=== PATIENT | male | born 2000 | race Caucasian/White ===

== ENCOUNTER 2023-03-29 09:46 | Emergency (ER) | payer OTHER ==
[~2023-03-29] VITALS: Ht 172.7 cm; Wt 90.9 kg
[2023-03-29 09:49] VITALS: BP 141/74; PULSE 66; RESP 18; TEMP 98.6
[2023-03-29] MEDS ORDERED: MECLIZINE HCL 25 MG TABLET PO ONE (10:45)
[2023-03-29] MEDS ORDERED: ACETAMINOPHEN 500 MG TABLET PO ONE (10:45)
[2023-03-29] MEDS ORDERED: ONDANSETRON HCL 4 MG TABLET PO ONE (10:45)
[2023-03-29] MEDS ORDERED: IBUP-1554 PO (12:39)
== END 2023-03-29 13:37 | disposition home or self-care (01) ==
LOC: EMS 09:50
DX: S13.4XXA Sprain of ligaments of cervical spine, initial encounter (principal); S00.93XA Contusion of unspecified part of head, initial encounter; X58.XXXA Exposure to other specified factors, initial encounter; Y93.89 Activity, other specified; Y92.89 Other specified places as the place of occurrence of the external cause; Y99.8 Other external cause status
CPT/HCPCS: 99284; 70450; 72125; Q0162